=== PATIENT | female | born 1930 | race Caucasian/White ===

== ENCOUNTER → 2016-08-05 | Outpatient (CLI) | payer OTHER ==
[~2016-08-05] MED LIST: ACET325T96 PO; ANAS1TAB6 PO; ASPEC325 PO; CHOL100027 PO; CLC100 PO; FRRG PO; LEVO25TA PO; LVNIS30 SQ; SENN-56 PO; TRAZ-119 PO; [UNRECOGNIZED DRUG - OTHER] PO
== END | disposition home or self-care (01) ==
LOC: C.RDSM 10:30
PROVIDERS: ATTEND Orthopaedic Surgery Sports Medicine
DX: Z09 Encounter for follow-up examination after completed treatment for conditions other than malignant neoplasm (principal); M25.552 Pain in left hip